=== PATIENT | male | born 1970 | race Caucasian/White ===

== ENCOUNTER → 2021-12-11 | Outpatient (CLI) | payer BC ==
--- NOTE | 2021-12-11 08:41 | CT ---
EXAMINATION TYPE: CT wrist LT wo con DATE OF EXAM: 12/11/2021 COMPARISON: None available HISTORY: nondisplaced fx distal pole navicular CT DLP: 208 mGycm Automated exposure control for dose reduction was used. TECHNIQUE: CT scan of the left wrist joint without IV contrast administration. 3-D reconstruction sabra ges were generated on an independent workstation and reviewed. FINDINGS: 3 mm bone fragment is seen at the distal dorsal aspect of the trapezoid bone seen at the trapezoid-Se cond metacarpal bone articulation, which could represent sequela of previous avulsion fracture at hao t location, please correlate clinically. No definite acute fracture line identified otherwise. No dislocation or significant subluxation. No s oft tissue swelling or calcification. Maintained articular relation of the wrist joint, including int ercarpal and remainder of the carpometacarpal articulations. IMPRESSION: Questionable avulsion fracture at the dorsal aspect of the trapezoid/second metacarpal bone articulat ion as described above, please correlate clinically. No definitive scaphoid bone fracture identified. Further bone scan or MRI assessment can be considered if clinically required.
== END | disposition home or self-care (01) ==
LOC: RADCTMAIN 06:51
PROVIDERS: ATTEND Orthopaedic Surgery Hand Surgery
DX: S62.015 Nondisplaced fracture of distal pole of navicular [scaphoid] bone of left wrist (principal); X58.XXXA Exposure to other specified factors, initial encounter